=== PATIENT | female | born 1975 | race Caucasian/White ===

== ENCOUNTER → 2022-10-17 09:17 | Outpatient (BNVA) | payer OTHER, SELFPAY | PROVIDERS: Visit Provider Physician Assistant | DX: S06.9X0A Unspecified intracranial injury without loss of consciousness, initial encounter (principal); S16.1XXA Strain of muscle, fascia and tendon at neck level, initial encounter; S39.012A Strain of muscle, fascia and tendon of lower back, initial encounter; S50.12XA Contusion of left forearm, initial encounter; S50.11XA Contusion of right forearm, initial encounter; W20.8XXA Other cause of strike by thrown, projected or falling object, initial encounter | CPT/HCPCS: 99204 ==

== ENCOUNTER → 2022-10-29 09:01 | Outpatient (BNVA) | payer OTHER, SELFPAY | PROVIDERS: Visit Provider Physician Assistant | DX: S06.9X0D Unspecified intracranial injury without loss of consciousness, subsequent encounter (principal); S16.1XXD Strain of muscle, fascia and tendon at neck level, subsequent encounter; S39.012D Strain of muscle, fascia and tendon of lower back, subsequent encounter; S60.052D Contusion of left little finger without damage to nail, subsequent encounter; W20.8XXD Other cause of strike by thrown, projected or falling object, subsequent encounter | CPT/HCPCS: 99213 ==

== ENCOUNTER → 2022-11-06 08:54 | Outpatient (BNVA) | payer OTHER, SELFPAY | PROVIDERS: Visit Provider Physician Assistant | DX: S06.9X0D Unspecified intracranial injury without loss of consciousness, subsequent encounter (principal); S16.1XXD Strain of muscle, fascia and tendon at neck level, subsequent encounter; S39.012D Strain of muscle, fascia and tendon of lower back, subsequent encounter; S62.607D Fracture of unspecified phalanx of left little finger, subsequent encounter for fracture with routine healing; W20.8XXD Other cause of strike by thrown, projected or falling object, subsequent encounter | CPT/HCPCS: 99214 ==

== ENCOUNTER → 2022-11-21 08:52 | Outpatient (BNVA) | payer OTHER, SELFPAY | PROVIDERS: Visit Provider Physician Assistant | DX: S06.9X0D Unspecified intracranial injury without loss of consciousness, subsequent encounter (principal); S62.601D Fracture of unspecified phalanx of left index finger, subsequent encounter for fracture with routine healing; W20.8XXD Other cause of strike by thrown, projected or falling object, subsequent encounter; H53.9 Unspecified visual disturbance; M54.2 Cervicalgia; M54.59 Other low back pain | CPT/HCPCS: 99214 ==

== ENCOUNTER → 2022-12-18 12:55 | Outpatient (BNVA) | payer OTHER, SELFPAY | PROVIDERS: Visit Provider Physician Assistant | DX: S06.9X0D Unspecified intracranial injury without loss of consciousness, subsequent encounter (principal); S16.1XXD Strain of muscle, fascia and tendon at neck level, subsequent encounter; S39.012D Strain of muscle, fascia and tendon of lower back, subsequent encounter; S61.217D Laceration without foreign body of left little finger without damage to nail, subsequent encounter; W20.8XXD Other cause of strike by thrown, projected or falling object, subsequent encounter | CPT/HCPCS: 99214 ==

== ENCOUNTER → 2023-01-02 09:36 | Outpatient (BNVA) | payer OTHER, SELFPAY | PROVIDERS: Visit Provider Physician Assistant | DX: S06.9X0D Unspecified intracranial injury without loss of consciousness, subsequent encounter (principal); S33.9XXD Sprain of unspecified parts of lumbar spine and pelvis, subsequent encounter; W20.8XXD Other cause of strike by thrown, projected or falling object, subsequent encounter; H53.9 Unspecified visual disturbance | CPT/HCPCS: 99213 ==

== ENCOUNTER → 2023-01-23 12:47 | Outpatient (BNVA) | payer OTHER, SELFPAY | PROVIDERS: Visit Provider Physician Assistant | DX: S06.9X0D Unspecified intracranial injury without loss of consciousness, subsequent encounter (principal); W20.8XXD Other cause of strike by thrown, projected or falling object, subsequent encounter; H53.9 Unspecified visual disturbance; M54.2 Cervicalgia | CPT/HCPCS: 99213 ==